=== PATIENT | male | born 1965 ===

== ENCOUNTER 2018-08-29 21:17 | Emergency (ER) | payer SELFPAY ==
[2018-08-29 21:23] VITALS: RESP 16
--- NOTE | 2018-08-29 23:27 | ED PDOC ---
HPI: Psych/Substance Abuse Time Seen by Provider: 08/29/18 22:19 Chief Complaint (Nursing): Alcohol Ingestion Chief Complaint (Provider): alcohol abuse ED Caveat: Intoxicated History Per: EMS History/Exam Limitations: intoxication Current Symptoms Are (Timing): Still Present Suicide/Self Injury Attempted (Context): None Modifying Factor(s): Alcohol Severity: Moderate Additional Complaint(s): 53 y/o male brought in for alcohol intoxication. Patient has been seen for same several times for same. Patient is arousable by voice and painful stimuli. Patient is answering questions in an incomprehensible mumble. No signs of injury noted. Past Medical History Reviewed: Historical Data, Nursing Documentation, Vital Signs Vital Signs: Last Vital Signs Temp 97.8 F 08/29/18 21: Pulse 86 08/29/18 21:22 Resp 16 08/29/18 21:22 BP 112/80 08/29/18 21:22 Pulse Ox 97 08/29/18 21:22 Primary Care Provider: FAMILY PROVIDER,NO - Medical History PMH: Bipolar Disorder, Depression, Fractures, HTN, Paranoia, Seizures Denies: Diabetes, Hepatitis, HIV, Chronic Kidney Disease, Sexually Transmitted Disease - Surgical History Surgical History: No Surg Hx, Hernia Repair - Family History Family History: States: Unknown Family Hx - Social History Alcohol: > 2 Drinks/Day Drugs: Denies - Immunization History Hx Tetanus Toxoid Vaccination: Yes Hx Influenza Vaccination: Yes Hx Pneumococcal Vaccination: No - Home Medications Home Medications: Ambulatory Orders Medication Instructions Recorded Risperidone [Risperdal M-TAB] 1 mg PO BID 11/20/17 traZODone [Desyrel] 100 mg PO DAILY 11/20/17 Escitalopram [Lexapro] 10 mg PO DAILY #30 tab 01/02/18 Olanzapine [Zyprexa] 5 mg PO BID #60 tablet 01/30/18 Sertraline [Zoloft] 50 mg PO DAILY #30 tab 01/30/18 traZODone [Desyrel] 50 mg PO HS PRN #30 tab 01/30/18 Meclizine HCl 25 mg PO TID PRN #25 tablet 04/22/18 Gabapentin [Neurontin] 100 mg PO DAILY 05/21/18 Quetiapine Fumarate [Seroquel] 50 mg PO DAILY 05/21/18 Guaifenesin [Mucinex] 600 mg PO BID 5 Days tab.er.12h 05/29/18 Meclizine [Meclizine*] 25 mg PO Q6 #20 tab 05/29/18 Albuterol 0.042% [Albuterol 0.042% 1.25 mg INH RBID neb 06/10/18 Inhal Dariela (1.25mg/3ml) UD] Docusate [Colace] 100 mg PO DAILY cap 06/10/18 Folic Acid 1 mg PO DAILY tab 06/10/18 Meclizine [Antivert] 12.5 mg PO DAILY PRN tab 06/10/18 Multivitamins [Hexavitamin] 1 tab PO DAILY tab 06/10/18 Pantoprazole [Protonix EC Tab] 40 mg PO DAILY ect 06/10/18 Thiamine [Vitamin B1 Tab] 100 mg PO DAILY tab 06/10/18 amLODIPine [Norvasc] 2.5 mg PO DAILY #30 tab 06/10/18 hydrOXYzine HCl [Atarax] 25 mg PO Q4 PRN tab 06/10/18 Gabapentin [Neurontin] 300 mg PO BID #60 cap 06/21/18 OLANZapine [Zyprexa] 10 mg PO BID #60 tab 06/21/18 traZODone [Desyrel] 100 mg PO HS #60 tab 06/21/18 Ibuprofen [Motrin] 600 mg PO Q6 PRN #20 tab 07/26/18 - Allergies Allergies/Adverse Reactions: Allergies Allergy/AdvReac Type Severity Reaction Status Date / Time No Known Allergies Allergy Verified 08/29/18 21:22 Review of Systems Review Of Systems: ROS cannot be obtained secondary to pt's inabilty to answer questions. Physical Exam - Reviewed Nursing Documentation Reviewed: Yes Vital Signs Reviewed: Yes - Physical Exam Appears: Positive for: No Acute Distress Head Exam: Positive for: ATRAUMATIC, NORMAL INSPECTION, NORMOCEPHALIC Eye Exam: Positive for: Normal appearance ENT: Positive for: Normal ENT Inspection Neck: Positive for: Normal, Painless ROM Cardiovascular/Chest: Positive for: Regular Rate, Rhythm Respiratory: Positive for: Normal Breath Sounds Gastrointestinal/Abdominal: Positive for: Normal Exam, Soft. Negative for: Tenderness Rectal: Positive for: Deferred Extremity: Positive for: Normal ROM Neurological/Psych: Positive for: Awake (arousable with painful stimuli and voice. ), Alert, Normal Tone - ECG O2 Sat by Pulse Oximetry: 97 Medical Decision Making Medical Decision Making: accucheck: 98 Alcohol level: 297 Patient is calm, sleeping. Will monitor until sober. 00:00 Patient endorsed to Jared Singh PA-c, pending sobiety, then D/C Disposition - Clinical Impression Clinical Impression: Alcohol abuse, Alcohol abuse with intoxication - Patient ED Disposition Is Patient to be Admitted: Transfer of Care Counseled Patient/Family Regarding: Diagnosis - Disposition Disposition: Transfer of Care Disposition Time: 00:00 Condition: STABLE Forms: [id number] (Azeri) Patient Signed Over To: Jared Mcclain Handoff Comments: pending sobiety - POA Present On Arrival: None
--- NOTE | 2018-08-30 01:15 | ED PDOC ---
- ECG O2 Sat by Pulse Oximetry: 97 Medical Decision Making Medical Decision Makin:00 case endorsed to me by Gabe KYLE, pending sobriety and dispo 02:00 pt sleeping, easily arousable, but goes back to sleep 05:30 on re eval pt is sleeping, easily arousable, awake, alert and oriented, steady gait, stable for dc Discussed results, diagnosis, treatment, return precautions and f/u with pt who is understanding and in agreement Disposition Counseled Patient/Family Regarding: Studies Performed, Diagnosis, Need For Followup - Clinical Impression Clinical Impression: Alcohol abuse, Alcohol abuse with intoxication - POA Present On Arrival: None - Disposition Referrals: [facility] [Outside] Disposition: Routine/Home Disposition Time: 05:30 Condition: STABLE Additional Instructions: Thank you for letting us take care of you today. The emergency medical care you received today was directed at your acute symptoms. If you were prescribed any medication, please fill it and take as directed. It may take several days for your symptoms to resolve. Return to the Emergency Department if your symptoms worsen, do not improve, or if you have any other problems. Please contact your doctor in 2 days for re-evaluation and follow up / or call one of the physicians/clinics you have been referred to that are listed on the Patient Visit Information form that is included in your discharge packet. Bring any paperwork you were given at discharge with you along with any medications you are taking to your follow up visit. Our treatment cannot replace ongoing medical care by a primary care provider (PCP) outside of the emergency de partment. Instructions: Alcohol Use - When Is Drinking a Problem? Print Language: SLOVENIAN
[2018-08-30 06:06] VITALS: BP 122/76; PULSE 86; TEMP 98.2; O2SAT 98
== END 2018-08-30 05:35 | disposition home or self-care (01) ==
LOC: H.ER 21:17
DX: F10.129 Alcohol abuse with intoxication, unspecified (principal); F31.9 Bipolar disorder, unspecified; I10 Essential (primary) hypertension
CPT/HCPCS: 82948; 99283; G0480